=== PATIENT | female | born 1995 | race Two or more races ===

== ENCOUNTER 2019-09-13 19:15 | Inpatient (IN) | payer OTHER ==
[~2019-09-13] VITALS: Ht 157.5 cm; Wt 50.4 kg
[2019-09-13] MEDS ORDERED: CEPH500 PO (20:46)
[2019-09-13] MEDS ORDERED: CARB200T6 PO (20:47)
[2019-09-13 22:06] LABS: BASOPHILS % (AUTO) 0.6 % (0.0-2.0); EOSINOPHILS % (AUTO) 1.7 % (1.0-6.0); HEMATOCRIT 34.2 % (36-46); HEMOGLOBIN 11.3 g/dL (12.0-16.0); LYMPHOCYTES # (AUTO) 3.1 K/uL (1.0-4.8); LYMPHOCYTES % (AUTO) 32.8 % (22.0-44.0); MEAN CORPUSCULAR HEMOGLOBIN 27.7 pg (26.0-34.0); MEAN CORPUSCULAR VOLUME 84 fL (80-100); MONOCYTES # (AUTO) 0.9 K/uL (0.1-1.0); MONOCYTES % (AUTO) 9.6 % (2.0-9.0); NEUTROPHILS # (AUTO) 5.2 K/uL (1.8-7.7); NEUTROPHILS % (AUTO) 55.3 % (40.0-70.0); PLATELET COUNT (AUTO) 390 K/uL (150-450); RED BLOOD CELL COUNT(AUTO) 4.07 MIL/uL (4.00-5.20); RED CELL DISTRIBUTION WIDTH 14.9 % (11.5-14.5)
[2019-09-13 22:14] LABS: ANION GAP 6 mmol/L (8-16); CALCIUM, TOTAL 8.6 mg/dL (8.8-10.5); CARBON DIOXIDE 31 mmol/L (22-29); CHLORIDE 106 mmol/L (98-107); CREATININE 0.68 mg/dL (0.60-1.30); GLOMERULAR FILTR. RATE CALC > 60 mL/min (>60); GLUCOSE,RANDOM 97 mg/dL (70-110); POTASSIUM 3.4 mmol/L (3.5-5.1); SODIUM SERUM 143 mmol/L (136-145); UREA NITROGEN, BLOOD 9 mg/dL (7-18)
[2019-09-13 22:21] LABS: ALANINE AMINOTRANSFERASE 24 U/L (12-78); ALBUMIN 2.8 g/dL (3.4-5.0); ALKALINE PHOSPHATASE 78 U/L (46-116); ASPARTATE AMINOTRANSFERASE 15 U/L (15-37); BILIRUBIN,TOTAL 0.2 mg/dL (0.1-1.0); CREATINE KINASE, TOTAL ONLY 47 U/L (26-192); TOTAL PROTEIN, SERUM 6.5 g/dL (6.4-8.2)
[2019-09-13] MEDS ORDERED: ONDANSETRON HCL 4 MG/2 ML VIAL IVP PRN ×2 (22:45→23:15)
[2019-09-13] MEDS ORDERED: ACETAMINOPHEN 325 MG TABLET PO PRN (22:45)
[2019-09-13] MEDS ORDERED: ZOLPIDEM TARTRATE 5 MG TABLET PO PRN (23:15)
[2019-09-13] MEDS ORDERED: POTASSIUM CHLORIDE 20 MEQ ER TABLET PO PRN (23:15)
[2019-09-13] MEDS ORDERED: POTASSIUM CHL 10 MEQ/WATER 50 ML IV PRN (23:15)
[2019-09-13] MEDS ORDERED: BISACODYL 10 MG RECTAL RECTAL SUPPOSITORY PR PRN (23:15)
[2019-09-13] MEDS ORDERED: MORPHINE SULFATE 2 MG/ML SYRINGE IVP PRN (23:15)
[2019-09-13] MEDS ORDERED: HYDROCODONE/ACETAMINOPHEN 5-325 MG TABLET PO PRN (23:15)
[2019-09-14] VITALS (9 sets, daily range): BP systolic 74–124; BP diastolic 20–66
[2019-09-14] MEDS: HEPARIN SODIUM,PORCINE 5,000 UNITS/ML VIAL SQ SCH ×4 (00:06→17:12)
[2019-09-14 07:48] LABS: BASOPHILS % (AUTO) 0.9 % (0.0-2.0); EOSINOPHILS % (AUTO) 3.8 % (1.0-6.0); HEMATOCRIT 35.6 % (36-46); HEMOGLOBIN 11.8 g/dL (12.0-16.0); LYMPHOCYTES # (AUTO) 2.5 K/uL (1.0-4.8); LYMPHOCYTES % (AUTO) 35.2 % (22.0-44.0); MEAN CORPUSCULAR HEMOGLOBIN 27.8 pg (26.0-34.0); MEAN CORPUSCULAR HGB CONC 33.1 G/dL (31.0-37.0); MEAN CORPUSCULAR VOLUME 84 fL (80-100); MONOCYTES # (AUTO) 0.8 K/uL (0.1-1.0); MONOCYTES % (AUTO) 11.6 % (2.0-9.0); NEUTROPHILS # (AUTO) 3.5 K/uL (1.8-7.7); NEUTROPHILS % (AUTO) 48.5 % (40.0-70.0); PLATELET COUNT (AUTO) 411 K/uL (150-450); RED BLOOD CELL COUNT(AUTO) 4.24 MIL/uL (4.00-5.20); RED CELL DISTRIBUTION WIDTH 15.1 % (11.5-14.5)
[2019-09-14 07:59] LABS: ANION GAP 4 mmol/L (8-16); CALCIUM, TOTAL 8.7 mg/dL (8.8-10.5); CARBON DIOXIDE 30 mmol/L (22-29); CHLORIDE 109 mmol/L (98-107); CREATININE 0.73 mg/dL (0.60-1.30); GLOMERULAR FILTR. RATE CALC > 60 mL/min (>60); GLUCOSE,RANDOM 88 mg/dL (70-110); POTASSIUM 4.7 mmol/L (3.5-5.1); SODIUM SERUM 143 mmol/L (136-145); UREA NITROGEN, BLOOD 7 mg/dL (7-18)
[2019-09-14] MEDS: DOCUSATE SODIUM 100 MG CAPSULE PO SCH ×2 (08:19→21:19)
[2019-09-14] MEDS: PANTOPRAZOLE SODIUM 40 MG DR TABLET PO SCH (08:20)
[2019-09-14] MEDS: RisperiDONE 1 MG TABLET PO SCH ×2 (12:23→21:20)
[2019-09-14] MEDS: CarBAMazepine 200 MG TABLET PO SCH ×2 (12:24→21:19)
[2019-09-14] MEDS ORDERED: SODIUM CHLORIDE 0.9% 500 ML IV ONE (21:47)
[2019-09-14] MEDS ORDERED: SODIUM CHLORIDE 0.9% 500 ML IV STA (22:04)
[2019-09-14] MEDS ORDERED: SODIUM CHLORIDE 0.9% 1,000 ML IV ONE (22:15)
[2019-09-14] MEDS ORDERED: SODIUM CHLORIDE 0.9% 100 ML ONE (23:44)
[2019-09-15] VITALS (8 sets, daily range): BP systolic 80–109; BP diastolic 44–90
[2019-09-15 06:05] LABS: AMPHET/METH SCREEN,URINE NEGATIVE (NEGATIVE); BARBITURATE SCREEN, URINE NEGATIVE (NEGATIVE); BENZODIAZEPINES SCREEN,URINE NEGATIVE (NEGATIVE); CANNABINOID SCREEN,URINE NEGATIVE (NEGATIVE); COCAINE SCREEN,URINE NEGATIVE (NEGATIVE); METHADONE SCREEN, URINE NEGATIVE (NEGATIVE); OPIATE SCREEN,URINE NEGATIVE (NEGATIVE)
[2019-09-15 06:06] LABS: PHENCYCLIDINE SCREEN,URINE NEGATIVE (NEGATIVE)
[2019-09-15] MEDS: HEPARIN SODIUM,PORCINE 5,000 UNITS/ML VIAL SQ SCH ×4 (08:00→16:17)
[2019-09-15] MEDS: PANTOPRAZOLE SODIUM 40 MG DR TABLET PO SCH (08:20)
[2019-09-15] MEDS: MULTIVITAMINS WITH MINERALS, THERAPEUTIC TABLET PO SCH (08:21)
[2019-09-15] MEDS: CarBAMazepine 200 MG TABLET PO SCH ×2 (08:21→21:27)
[2019-09-15] MEDS: DOCUSATE SODIUM 100 MG CAPSULE PO SCH ×2 (08:21→20:35)
[2019-09-15] MEDS: RisperiDONE 1 MG TABLET PO SCH ×2 (08:21→20:35)
[2019-09-15] MEDS: SODIUM CHLORIDE 0.9% 1,000 ML IV SCH (09:52)
[2019-09-15] MEDS ORDERED: HALOPERIDOL LACTATE 5 MG/ML VIAL IM ONE (15:00)
[2019-09-15] MEDS ORDERED: DiphenhydrAMINE HCL 50 MG/ML VIAL IM ONE (15:00)
[2019-09-15] MEDS ORDERED: LORazepam 2 MG/ML VIAL IM ONE (15:45)
[2019-09-16] MEDS: HEPARIN SODIUM,PORCINE 5,000 UNITS/ML VIAL SQ SCH ×3 (00:18→16:45)
[2019-09-16] MEDS: SODIUM CHLORIDE 0.9% 1,000 ML IV SCH ×3 (00:34→16:47)
[2019-09-16 04:39] VITALS: BP 93/52
[2019-09-16] MEDS: CarBAMazepine 200 MG TABLET PO SCH ×2 (08:07→20:10)
[2019-09-16] MEDS: PANTOPRAZOLE SODIUM 40 MG DR TABLET PO SCH (08:07)
[2019-09-16] MEDS: DOCUSATE SODIUM 100 MG CAPSULE PO SCH ×2 (08:07→20:10)
[2019-09-16] MEDS: MULTIVITAMINS WITH MINERALS, THERAPEUTIC TABLET PO SCH (08:07)
[2019-09-16 08:23] VITALS: BP 107/60
[2019-09-16 15:15] VITALS: BP 154/84
[2019-09-16] MEDS ORDERED: LORazepam 1 MG TABLET PO ONE (15:15)
[2019-09-16] MEDS: RisperiDONE 1 MG TABLET PO SCH ×2 (15:21→20:10)
[2019-09-17] MEDS: SODIUM CHLORIDE 0.9% 1,000 ML IV SCH ×2 (00:39→21:33)
[2019-09-17] MEDS: HEPARIN SODIUM,PORCINE 5,000 UNITS/ML VIAL SQ SCH ×3 (00:39→15:45)
[2019-09-17 04:42] VITALS: BP 98/61
[2019-09-17 07:15] VITALS: BP 100/52
[2019-09-17] MEDS: PANTOPRAZOLE SODIUM 40 MG DR TABLET PO SCH (08:08)
[2019-09-17] MEDS: MULTIVITAMINS WITH MINERALS, THERAPEUTIC TABLET PO SCH (08:09)
[2019-09-17] MEDS: RisperiDONE 1 MG TABLET PO SCH ×2 (08:09→21:34)
[2019-09-17] MEDS: DOCUSATE SODIUM 100 MG CAPSULE PO SCH ×2 (08:09→21:33)
[2019-09-17] MEDS: CarBAMazepine 200 MG TABLET PO SCH ×2 (08:09→21:33)
[2019-09-17] MEDS: MAGNESIUM HYDROXIDE SUSPENSION 30 ML UDCUP PO PRN (13:20)
[2019-09-17 15:10] VITALS: BP 114/77
[2019-09-17] MEDS ORDERED: HALOPERIDOL LACTATE 5 MG/ML VIAL IM ONE (18:15)
[2019-09-17] MEDS ORDERED: LORazepam 2 MG/ML VIAL IM ONE (18:15)
[2019-09-17] MEDS ORDERED: DiphenhydrAMINE HCL 50 MG/ML VIAL IM ONE (18:15)
[2019-09-17] MEDS ORDERED: SODIUM CHLORIDE 0.9% 1,000 ML ONE (20:22)
[2019-09-17 21:01] VITALS: BP 83/49
[2019-09-18] VITALS (8 sets, daily range): BP systolic 78–104; BP diastolic 42–66
[2019-09-18] MEDS: HEPARIN SODIUM,PORCINE 5,000 UNITS/ML VIAL SQ SCH ×4 (00:36→23:23)
[2019-09-18] MEDS: SODIUM CHLORIDE 0.9% 1,000 ML IV SCH (07:58)
[2019-09-18] MEDS: DOCUSATE SODIUM 100 MG CAPSULE PO SCH ×2 (08:48→20:47)
[2019-09-18] MEDS: RisperiDONE 1 MG TABLET PO SCH ×2 (08:48→20:47)
[2019-09-18] MEDS: CarBAMazepine 200 MG TABLET PO SCH ×2 (08:48→20:47)
[2019-09-18] MEDS: MULTIVITAMINS WITH MINERALS, THERAPEUTIC TABLET PO SCH (08:48)
[2019-09-18] MEDS: PANTOPRAZOLE SODIUM 40 MG DR TABLET PO SCH (08:48)
[2019-09-18] MEDS ORDERED: SODIUM CHLORIDE 0.9% 500 ML IV ONE ×2 (16:08→16:15)
[2019-09-18] MEDS ORDERED: HALOPERIDOL LACTATE 5 MG/ML VIAL IM ONE (17:45)
[2019-09-18] MEDS ORDERED: HALOPERIDOL LACTATE 5 MG/ML VIAL ONE (17:51)
[2019-09-18] MEDS: HALOPERIDOL LACTATE 5 MG/ML VIAL IM PRN (17:55)
[2019-09-19 06:02] VITALS: BP 90/49
[2019-09-19 07:11] LABS: BASOPHILS % (AUTO) 0.9 % (0.0-2.0); EOSINOPHILS % (AUTO) 3.2 % (1.0-6.0); HEMATOCRIT 33.6 % (36-46); HEMOGLOBIN 11.3 g/dL (12.0-16.0); MEAN CORPUSCULAR HEMOGLOBIN 28.4 pg (26.0-34.0); MEAN CORPUSCULAR HGB CONC 33.6 G/dL (31.0-37.0); MEAN CORPUSCULAR VOLUME 84 fL (80-100); MONOCYTES # (AUTO) 0.5 K/uL (0.1-1.0); MONOCYTES % (AUTO) 6.8 % (2.0-9.0); NEUTROPHILS # (AUTO) 4.9 K/uL (1.8-7.7); NEUTROPHILS % (AUTO) 63.1 % (40.0-70.0); PLATELET COUNT (AUTO) 297 K/uL (150-450); RED BLOOD CELL COUNT(AUTO) 3.98 MIL/uL (4.00-5.20); RED CELL DISTRIBUTION WIDTH 15.7 % (11.5-14.5)
[2019-09-19 07:18] LABS: ANION GAP 5 mmol/L (8-16); CALCIUM, TOTAL 8.7 mg/dL (8.8-10.5); CARBON DIOXIDE 29 mmol/L (22-29); CHLORIDE 103 mmol/L (98-107); GLOMERULAR FILTR. RATE CALC > 60 mL/min (>60); GLUCOSE,RANDOM 84 mg/dL (70-110); POTASSIUM 4.2 mmol/L (3.5-5.1); SODIUM SERUM 137 mmol/L (136-145); UREA NITROGEN, BLOOD 12 mg/dL (7-18)
[2019-09-19] MEDS: MULTIVITAMINS WITH MINERALS, THERAPEUTIC TABLET PO SCH (07:58)
[2019-09-19] MEDS: PANTOPRAZOLE SODIUM 40 MG DR TABLET PO SCH (07:58)
[2019-09-19] MEDS: CarBAMazepine 200 MG TABLET PO SCH ×2 (07:58→20:42)
[2019-09-19] MEDS: DOCUSATE SODIUM 100 MG CAPSULE PO SCH ×2 (07:58→20:42)
[2019-09-19] MEDS: RisperiDONE 1 MG TABLET PO SCH ×2 (07:58→20:42)
[2019-09-19] MEDS: HEPARIN SODIUM,PORCINE 5,000 UNITS/ML VIAL SQ SCH ×2 (07:58→15:04)
[2019-09-19 08:36] VITALS: BP 91/59
[2019-09-19] MEDS: SODIUM CHLORIDE 0.9% 1,000 ML IV SCH (08:46)
[2019-09-19] MEDS ORDERED: LORazepam 2 MG/ML VIAL IM ONE (14:00)
[2019-09-19] MEDS ORDERED: LORazepam 2 MG/ML VIAL ONE (14:03)
[2019-09-19] MEDS: HALOPERIDOL LACTATE 5 MG/ML VIAL IM PRN (14:13)
[2019-09-19 20:11] VITALS: BP 85/42
[2019-09-19 21:00] VITALS: BP 72/36
[2019-09-19] MEDS ORDERED: SODIUM CHLORIDE 0.9% 1,000 ML IV ONE (21:15)
[2019-09-19 22:15] VITALS: BP 79/49
[2019-09-20] VITALS (8 sets, daily range): BP systolic 84–110; BP diastolic 44–74
[2019-09-20] MEDS: SODIUM CHLORIDE 0.9% 1,000 ML IV SCH ×2 (00:08→05:44)
[2019-09-20 08:19] LABS: BASOPHILS % (AUTO) 0.9 % (0.0-2.0); EOSINOPHILS % (AUTO) 3.1 % (1.0-6.0); HEMATOCRIT 34.2 % (36-46); HEMOGLOBIN 11.3 g/dL (12.0-16.0); LYMPHOCYTES # (AUTO) 1.6 K/uL (1.0-4.8); LYMPHOCYTES % (AUTO) 25.5 % (22.0-44.0); MEAN CORPUSCULAR HEMOGLOBIN 27.9 pg (26.0-34.0); MEAN CORPUSCULAR HGB CONC 32.9 G/dL (31.0-37.0); MEAN CORPUSCULAR VOLUME 85 fL (80-100); MONOCYTES # (AUTO) 0.5 K/uL (0.1-1.0); MONOCYTES % (AUTO) 8.4 % (2.0-9.0); NEUTROPHILS # (AUTO) 3.9 K/uL (1.8-7.7); NEUTROPHILS % (AUTO) 62.1 % (40.0-70.0); PLATELET COUNT (AUTO) 286 K/uL (150-450); RED BLOOD CELL COUNT(AUTO) 4.04 MIL/uL (4.00-5.20); RED CELL DISTRIBUTION WIDTH 15.7 % (11.5-14.5)
[2019-09-20] MEDS: MULTIVITAMINS WITH MINERALS, THERAPEUTIC TABLET PO SCH (08:20)
[2019-09-20] MEDS: CarBAMazepine 200 MG TABLET PO SCH ×2 (08:21→20:11)
[2019-09-20] MEDS: RisperiDONE 1 MG TABLET PO SCH (08:21)
[2019-09-20] MEDS: HEPARIN SODIUM,PORCINE 5,000 UNITS/ML VIAL SQ SCH ×4 (08:21→23:51)
[2019-09-20] MEDS: DOCUSATE SODIUM 100 MG CAPSULE PO SCH ×2 (08:21→20:11)
[2019-09-20] MEDS: PANTOPRAZOLE SODIUM 40 MG DR TABLET PO SCH (09:00)
[2019-09-20] MEDS ORDERED: HALOPERIDOL 5 MG TABLET ONE (13:38)
[2019-09-20] MEDS: RisperiDONE 2 MG TABLET PO SCH (20:11)
[2019-09-21 04:55] VITALS: BP 106/67
[2019-09-21 07:20] VITALS: BP 102/67
[2019-09-21 07:47] LABS: BASOPHILS % (AUTO) 0.8 % (0.0-2.0); EOSINOPHILS % (AUTO) 3.4 % (1.0-6.0); HEMATOCRIT 34.3 % (36-46); HEMOGLOBIN 11.7 g/dL (12.0-16.0); LYMPHOCYTES # (AUTO) 1.8 K/uL (1.0-4.8); LYMPHOCYTES % (AUTO) 23.2 % (22.0-44.0); MEAN CORPUSCULAR HEMOGLOBIN 28.5 pg (26.0-34.0); MEAN CORPUSCULAR VOLUME 84 fL (80-100); MONOCYTES # (AUTO) 0.7 K/uL (0.1-1.0); MONOCYTES % (AUTO) 8.5 % (2.0-9.0); NEUTROPHILS % (AUTO) 64.1 % (40.0-70.0); PLATELET COUNT (AUTO) 300 K/uL (150-450); RED BLOOD CELL COUNT(AUTO) 4.09 MIL/uL (4.00-5.20); RED CELL DISTRIBUTION WIDTH 15.9 % (11.5-14.5)
[2019-09-21] MEDS: DOCUSATE SODIUM 100 MG CAPSULE PO SCH ×2 (09:13→21:59)
[2019-09-21] MEDS: HEPARIN SODIUM,PORCINE 5,000 UNITS/ML VIAL SQ SCH ×2 (09:14→09:23)
[2019-09-21] MEDS: CarBAMazepine 200 MG TABLET PO SCH ×2 (09:15→21:59)
[2019-09-21] MEDS: RisperiDONE 2 MG TABLET PO SCH ×2 (09:15→22:06)
[2019-09-21] MEDS: PANTOPRAZOLE SODIUM 40 MG DR TABLET PO SCH (09:15)
[2019-09-21] MEDS: MULTIVITAMINS WITH MINERALS, THERAPEUTIC TABLET PO SCH (09:15)
[2019-09-21] MEDS: HALOPERIDOL 5 MG TABLET PO PRN ×4 (12:59→17:01)
[2019-09-21] MEDS: DiphenhydrAMINE HCL 25 MG CAPSULE PO PRN (13:41)
[2019-09-21 15:20] VITALS: BP 106/70
[2019-09-21] MEDS: ACETAMINOPHEN 325 MG TABLET PO PRN (16:21)
[2019-09-22] MEDS: HEPARIN SODIUM,PORCINE 5,000 UNITS/ML VIAL SQ SCH ×4 (01:16→20:50)
[2019-09-22 05:07] VITALS: BP 101/64
[2019-09-22 08:43] VITALS: BP 91/55
[2019-09-22] MEDS: RisperiDONE 2 MG TABLET PO SCH ×2 (09:09→20:49)
[2019-09-22] MEDS: PANTOPRAZOLE SODIUM 40 MG DR TABLET PO SCH (09:10)
[2019-09-22] MEDS: CarBAMazepine 200 MG TABLET PO SCH ×2 (09:10→20:49)
[2019-09-22] MEDS: DOCUSATE SODIUM 100 MG CAPSULE PO SCH ×2 (09:10→20:49)
[2019-09-22] MEDS: MULTIVITAMINS WITH MINERALS, THERAPEUTIC TABLET PO SCH (09:10)
[2019-09-22] MEDS: HALOPERIDOL 5 MG TABLET PO PRN ×2 (09:10→16:14)
[2019-09-22] MEDS: DiphenhydrAMINE HCL 25 MG CAPSULE PO PRN ×2 (10:46→18:05)
[2019-09-22 16:43] VITALS: BP 105/66
[2019-09-22 21:02] VITALS: BP 108/65
[2019-09-23 04:12] VITALS: BP 112/62
[2019-09-23 05:05] VITALS: BP 90/57
[2019-09-23 07:15] VITALS: BP 102/60
[2019-09-23] MEDS: HALOPERIDOL 5 MG TABLET PO PRN ×2 (08:34→14:34)
[2019-09-23] MEDS: DOCUSATE SODIUM 100 MG CAPSULE PO SCH ×2 (08:34→19:58)
[2019-09-23] MEDS: RisperiDONE 2 MG TABLET PO SCH ×2 (08:34→19:58)
[2019-09-23] MEDS: MULTIVITAMINS WITH MINERALS, THERAPEUTIC TABLET PO SCH (08:34)
[2019-09-23] MEDS: PANTOPRAZOLE SODIUM 40 MG DR TABLET PO SCH (08:34)
[2019-09-23] MEDS: CarBAMazepine 200 MG TABLET PO SCH ×2 (08:34→19:58)
[2019-09-23] MEDS: HEPARIN SODIUM,PORCINE 5,000 UNITS/ML VIAL SQ SCH ×3 (08:38→19:58)
[2019-09-23] MEDS: MAGNESIUM HYDROXIDE SUSPENSION 30 ML UDCUP PO PRN (08:39)
[2019-09-23] MEDS: ACETAMINOPHEN 325 MG TABLET PO PRN (14:34)
[2019-09-23 16:54] VITALS: BP 96/52
[2019-09-23 20:39] VITALS: BP 86/60
[2019-09-24 05:27] VITALS: BP 93/46
[2019-09-24 08:05] VITALS: BP 83/54
[2019-09-24] MEDS: RisperiDONE 2 MG TABLET PO SCH (09:01)
[2019-09-24] MEDS: DOCUSATE SODIUM 100 MG CAPSULE PO SCH ×2 (09:01→22:09)
[2019-09-24] MEDS: CarBAMazepine 200 MG TABLET PO SCH ×2 (09:01→22:10)
[2019-09-24] MEDS: PANTOPRAZOLE SODIUM 40 MG DR TABLET PO SCH (09:01)
[2019-09-24] MEDS: MULTIVITAMINS WITH MINERALS, THERAPEUTIC TABLET PO SCH (09:01)
[2019-09-24] MEDS: HEPARIN SODIUM,PORCINE 5,000 UNITS/ML VIAL SQ SCH ×2 (09:02→15:33)
[2019-09-24] MEDS: HALOPERIDOL 5 MG TABLET PO PRN ×2 (09:57→15:33)
[2019-09-24] MEDS: DIVALPROEX SODIUM 500 MG DR TABLET PO SCH ×2 (13:13→22:10)
[2019-09-24] MEDS: DiphenhydrAMINE HCL 25 MG CAPSULE PO PRN (13:13)
[2019-09-24 15:26] VITALS: BP 94/63
[2019-09-24 19:57] VITALS: BP 87/55
[2019-09-24 20:12] VITALS: BP 100/66
[2019-09-24] MEDS: RisperiDONE 3 MG TABLET PO SCH (22:10)
[2019-09-25] MEDS: HEPARIN SODIUM,PORCINE 5,000 UNITS/ML VIAL SQ SCH ×4 (00:13→22:09)
[2019-09-25 05:16] VITALS: BP 91/53
[2019-09-25] MEDS: PANTOPRAZOLE SODIUM 40 MG DR TABLET PO SCH (08:33)
[2019-09-25] MEDS: DIVALPROEX SODIUM 500 MG DR TABLET PO SCH ×2 (08:33→22:09)
[2019-09-25] MEDS: RisperiDONE 3 MG TABLET PO SCH ×2 (08:33→22:08)
[2019-09-25] MEDS: DOCUSATE SODIUM 100 MG CAPSULE PO SCH ×2 (08:33→22:08)
[2019-09-25] MEDS: MULTIVITAMINS WITH MINERALS, THERAPEUTIC TABLET PO SCH (08:33)
[2019-09-25] MEDS: CarBAMazepine 200 MG TABLET PO SCH ×2 (08:33→22:09)
[2019-09-25] MEDS: DiphenhydrAMINE HCL 25 MG CAPSULE PO PRN ×2 (08:33→17:30)
[2019-09-25] MEDS: ACETAMINOPHEN 325 MG TABLET PO PRN (08:34)
[2019-09-25 16:05] VITALS: BP 100/58
[2019-09-25] MEDS: HALOPERIDOL 5 MG TABLET PO PRN (16:07)
[2019-09-25 22:00] VITALS: BP 94/56
[2019-09-26 05:46] VITALS: BP 92/58
[2019-09-26] MEDS: DOCUSATE SODIUM 100 MG CAPSULE PO SCH ×2 (07:57→20:53)
[2019-09-26] MEDS: CarBAMazepine 200 MG TABLET PO SCH ×2 (07:57→20:53)
[2019-09-26] MEDS: DIVALPROEX SODIUM 500 MG DR TABLET PO SCH ×2 (07:57→20:53)
[2019-09-26] MEDS: RisperiDONE 3 MG TABLET PO SCH ×2 (07:57→20:53)
[2019-09-26] MEDS: HEPARIN SODIUM,PORCINE 5,000 UNITS/ML VIAL SQ SCH ×2 (07:58→14:56)
[2019-09-26] MEDS: PANTOPRAZOLE SODIUM 40 MG DR TABLET PO SCH (07:58)
[2019-09-26] MEDS: DiphenhydrAMINE HCL 25 MG CAPSULE PO PRN ×2 (07:58→14:15)
[2019-09-26] MEDS: MULTIVITAMINS WITH MINERALS, THERAPEUTIC TABLET PO SCH (07:58)
[2019-09-26 08:46] VITALS: BP 94/62
[2019-09-26] MEDS: HALOPERIDOL 5 MG TABLET PO PRN (14:15)
[2019-09-26 16:09] VITALS: BP 86/58
[2019-09-26 16:23] VITALS: BP 90/56
[2019-09-26 20:17] VITALS: BP 119/50
[2019-09-27] MEDS: HEPARIN SODIUM,PORCINE 5,000 UNITS/ML VIAL SQ SCH ×2 (00:16→08:18)
[2019-09-27 05:13] VITALS: BP 91/61
[2019-09-27] MEDS: DIVALPROEX SODIUM 500 MG DR TABLET PO SCH (08:17)
[2019-09-27] MEDS: PANTOPRAZOLE SODIUM 40 MG DR TABLET PO SCH (08:17)
[2019-09-27] MEDS: MULTIVITAMINS WITH MINERALS, THERAPEUTIC TABLET PO SCH (08:17)
[2019-09-27] MEDS: DOCUSATE SODIUM 100 MG CAPSULE PO SCH (08:17)
[2019-09-27] MEDS: CarBAMazepine 200 MG TABLET PO SCH (08:18)
[2019-09-27] MEDS: MAGNESIUM HYDROXIDE SUSPENSION 30 ML UDCUP PO PRN (08:18)
[2019-09-27] MEDS: RisperiDONE 3 MG TABLET PO SCH (08:18)
[2019-09-27 09:03] VITALS: BP 92/61
[2019-09-27] MEDS: DiphenhydrAMINE HCL 25 MG CAPSULE PO PRN (09:22)
[2019-09-27] MEDS: HALOPERIDOL 5 MG TABLET PO PRN (09:22)
[2019-09-27] MEDS ORDERED: DIVA125SP PO (15:13)
[2019-09-27] MEDS ORDERED: RISP2 PO (15:15)
[2019-09-27 15:39] VITALS: BP 93/69
== END 2019-09-27 16:00 | DRG 885 ==
LOC: EMS 19:21 → 6S 22:38
PROVIDERS: ADMIT Internal Medicine; ATTEND Internal Medicine
DX: F29 Unspecified psychosis not due to a substance or known physiological condition (principal); E43 Unspecified severe protein-calorie malnutrition; E87.6 Hypokalemia; D64.9 Anemia, unspecified; G40.909 Epilepsy, unspecified, not intractable, without status epilepticus; F41.9 Anxiety disorder, unspecified; F15.10 Other stimulant abuse, uncomplicated; Z68.20 Body mass index [BMI] 20.0-20.9, adult
CPT/HCPCS: 80307; 83735; J1200; J1630; J1644; J2060; J3230; J7030; J7040; J7050